=== PATIENT | male | born 1985 | race Caucasian/White ===

== ENCOUNTER 2020-08-27 00:38 | Emergency (ER) | payer MEDICARE, OTHER ==
[~2020-08-27 00:38] MED LIST: AMOXICILLIN500 MG PO; BACTROBAN OINT22 GM EXT; CLEOCIN HCL300 MG PO; CLINDAMYCIN HC150 MG PO; DESYREL 50 MG T50 MG PO; FLONASE 0.05% N16 GM; IBUPROFEN600 MG PO; IBUPROFEN800 MG PO; INDERAL TAB 1010 MG PO; KEPPRA250 MG PO; LODINE CAP 300300 MG PO; NAPROSYN500 MG PO; NEURONTIN800 MG PO; PRINIVIL10 MG PO; SUBOXONE 8 MG-1 EACH SL; TORADOL 10 MG T10 MG PO; VISTARIL50 MG PO; ZANTAC150 MG PO; ZOFRAN4 MG PO
[2020-08-27 01:40] LABS: HEMOGLOBIN 15.9 gm/dl (14.0-17.5); RED BLOOD COUNT 5.05 M/UL (4.20-5.50); WHITE BLOOD COUNT 8.2 K/UL (4.5-11.0)
[2020-08-27 03:12] LABS: BUN/CREATININE RATIO 7 (0-10)
== END 2020-08-27 03:30 | disposition home or self-care (01) ==
LOC: ER1 00:38
PROVIDERS: Physician Assistant
DX: R53.1 Weakness (principal); G40.909 Epilepsy, unspecified, not intractable, without status epilepticus; F17.210 Nicotine dependence, cigarettes, uncomplicated; Z20.822 Contact with and (suspected) exposure to COVID-19; Z86.19 Personal history of other infectious and parasitic diseases
CPT/HCPCS: 71045; 80053; 82550; 82553; 83874; 84439; 84443; 84484; 85025; 93005; 99285; U0002